=== PATIENT | male | born 1965 | race Caucasian/White ===

== ENCOUNTER → 2019-11-04 | Outpatient (CLI) | payer OTHER ==
--- NOTE | 2019-11-04 14:06 | 2DMMODE ---
[place] [address] 2 D/M-MODE ECHOCARDIOGRAM Name: DAGODAYRON Milner Room: [facility]#: [id number] Admission: 11/04/19 Attend Phys: Jade Ratliff, Discharge: Date of : 65 Date of Service: 11/04/19 1404 Report #: [id number] THIS REPORT FOR: cc: Jade Ratliff,Jade Randolph,Jose Castro MD [facility] ~ APPROVED REPORT Study performed: 11/04/2019 12:47:44 EXAM: Comprehensive 2D, Doppler, and color-flow Echocardiogram Patient Location: Out-Patient BSA: 1.89 HR: 89 bpm BP: 135/80 mmHg Other Information Study Quality: Good Indications CVA/TIA 2D Dimensions IVSd: 12.17 (7-11mm) LVOT Diam: 20.48 (18-24mm) LVDd: 36.31 mm PWd: 9.50 (7-11mm) Ascending Ao: 27.13 (22-36mm) LVDs: 20.82 (25-40mm) Aortic Root: 22.78 mm Volumes Left Atrial Volume (Systole) LA ESV Index: 9.30 mL/m2 Aortic Valve AoV Peak Toy.: 1.14 m/s AO Peak Gr.: 5.22 mmHg LVOT Max P.54 mmHg AO Mean Gr.: 2.90 mmHg LVOT Mean P.53 mmHg LVOT Max V: 0.94 m/s AO V2 VTI: 19.72 cm LVOT Mean V: 0.56 m/s JEB (VTI): 3.02 cm2 LVOT V1 VTI: 18.07 cm Mitral Valve E/A Ratio: 0.67 [place] [address] 2 D/M-MODE ECHOCARDIOGRAM Name: DAYRON LOZA Room: [facility]#: [id number] Admission: 11/04/19 Attend Phys: Jade Ratliff, Discharge: Date of : 65 Date of Service: 11/04/19 1404 Report #: [id number] MV Decel. Time: 151.25 ms MV E Max Toy.: 0.67 m/s MV PHT: 43.86 ms MVA (PHT): 5.02 cm2 TDI E/Lateral E': 8.38 E/Medial E': 11.17 Medial E' Toy.: 0.06 m/s Lateral E' Toy.: 0.08 m/s Pulmonary Valve PV Peak Toy.: 0.81 m/s PV Peak Gr.: 2.64 mmHg Left Ventricle The left ventricle is normal size. There is normal LV segmental wall motion. There is normal left ventricular wall thickness. Left ventricular systolic function is normal. The left ventricular ejection fraction is within the normal range. LVEF is 60-65%. Grade I - abnormal relaxation pattern. Right Ventricle The right ventricle is normal size. The right ventricular systolic function is normal. Atria The left atrium size is normal. The right atrium size is normal. Aortic Valve The aortic valve is normal in structure. No aortic regurgitation is present. There is no aortic valvular stenosis. Mitral Valve The mitral valve is normal in structure. There is no mitral valve regurgitation noted. No evidence of mitral valve stenosis. Tricuspid Valve The tricuspid valve is normal in structure. There is no tricuspid valve regurgitation noted. Pulmonic Valve The pulmonary valve is normal in structure. There is no pulmonic valvular regurgitation. Great Vessels The aortic root is normal in size. IVC [place] [address] 2 D/M-MODE ECHOCARDIOGRAM Name: DAYRON LOZA Room: [facility]#: [id number] Admission: 11/04/19 Attend Phys: Jade Ratliff, Discharge: Date of : 65 Date of Service: 11/04/19 1404 Report #: [id number] collapses >50% with inspiration. Pericardium There is no pericardial effusion. <Conclusion> The left ventricle is normal size. There is normal left ventricular wall thickness. Left ventricular systolic function is normal. The left ventricular ejection fraction is within the normal range. LVEF is 60-65%. Grade I - abnormal relaxation pattern. The right ventricle is normal size. The left atrium size is normal. The aortic valve is normal in structure. The mitral valve is normal in structure. The tricuspid valve is normal in structure. IVC is normal in size and collapses >50% with inspiration. There is no pericardial effusion. There is normal LV segmental wall motion. <ELECTRONICALLY SIGNED> By: Jose Wynne MD, [facility] 11/04/19 1404 1404 1404 Jose Wynne MD, FACC /INF
== END ==
LOC: M.CRD 12:47
DX: G45.8 Other transient cerebral ischemic attacks and related syndromes (principal)